=== PATIENT | male | born 1960 | race Caucasian/White ===

== ENCOUNTER → 2016-07-25 | Outpatient (CLI) | payer OTHER ==
[~2016-07-25] MED LIST: ADENOSINE 76 MG in GIVE UN-DILUTED 0 ML IV ONE; ADENOSINE 90 MG/30 ML INJ IV ONE; GABA-494 PO; METF-312 PO; SIMV-8 PO; SITA100T7 PO
== END | disposition home or self-care (01) ==
LOC: Rad HDHVI 09:12
PROVIDERS: ATTEND Internal Medicine Cardiovascular Disease
DX: I10 Essential (primary) hypertension (principal); E78.00 Pure hypercholesterolemia, unspecified; E11.9 Type 2 diabetes mellitus without complications; F17.210 Nicotine dependence, cigarettes, uncomplicated
CPT/HCPCS: 78452; 93005; 96374; 96375; A9500; J0153

== ENCOUNTER → 2016-09-05 | Outpatient (CLI) | payer OTHER ==
[~2016-09-05] MED LIST changes: -ADENOSINE 76 MG in GIVE UN-DILUTED 0 ML IV ONE; -ADENOSINE 90 MG/30 ML INJ IV ONE; -METF-312 PO; +METF-370 PO
[2016-09-05 12:33] LABS: Basophils # (auto) 0 uL; Basophils % (auto) 0.3 % (0.0-2.0); CONDITION Y; Eosinophils # (auto) 0 uL; Eosinophils % (auto) 0.6 % (0.0-7.0); Hematocrit 49.3 % (41.0-53.0); Hemoglobin 16.7 g/dL (13.5-17.5); Lymphocytes # (auto) 1.8 uL; Lymphocytes % (auto) 22.8 % (10.0-50.0); Mean Corpuscular Hemoglobin 29.6 pg (28.0-32.0); Mean Corpuscular Hgb Conc. 33.8 g/dL (32.0-36.0); Mean Corpuscular Volume 87.6 fL (80.0-100.0); Mean Platelet Volume 8.6 fL (7.4-10.4); Monocytes # (auto) 0.4 uL; Monocytes % (auto) 5.5 % (0.0-12.0); Neutrophils # (auto) 5.7 uL; Neutrophils % (auto) 70.8 % (37.0-80.0); Platelet Count (auto) 363 10^3/uL (140-450); Red Cell Distribution Width 13.8 % (11.6-16.0); White Blood Cell 8.1 10^3/uL (4.4-10.8)
[2016-09-05 12:35] LABS: Urine Bilirubin Negative (Negative); Urine Blood Negative /uL (Negative); Urine Color Yellow (Yellow); Urine Glucose 4+ mg/dL (Normal); Urine Ketone 1+ (Negative); Urine Nitrite Negative (Negative); Urine Urobilinogen Normal (Negative)
[2016-09-05 12:51] LABS: Albumin 4.1 g/dL (3.4-5.0); BUN/Creatinine Ratio 20.3; Bilirubin, Direct 0.1 mg/dL (0-0.2); Bilirubin, Total 0.5 mg/dL (0.2-1.0); Calcium 9.2 mg/dL (8.5-10.1)
== END | disposition home or self-care (01) ==
LOC: LAB 07:52
PROVIDERS: ATTEND Internal Medicine Cardiovascular Disease
DX: I10 Essential (primary) hypertension (principal); E78.00 Pure hypercholesterolemia, unspecified; K74.1 Hepatic sclerosis; E11.9 Type 2 diabetes mellitus without complications; R97.20 Elevated prostate specific antigen [PSA]; R53.1 Weakness; E03.9 Hypothyroidism, unspecified; D64.9 Anemia, unspecified; E55.9 Vitamin D deficiency, unspecified; N39.0 Urinary tract infection, site not specified
CPT/HCPCS: 36415; 80048; 80061; 80076; 81003; 82306; 83036; 84153; 84403; 84443; 85025

== ENCOUNTER → 2016-12-28 | Outpatient (CLI) | payer OTHER ==
[~2016-12-28] MED LIST changes: +ASPI81TA27 PO; +CLOP75TA41 PO; +DAPA1TAB2 PO; +HYDR-4663 PO; +MAGN400T5 PO; +RANO1000 PO; +SITA50TA28 PO; +VITA400T4 PO
[2016-12-28 08:00] VITALS: BP 114/76
[2016-12-28 08:40] VITALS: BP 100/85
[2016-12-28 12:46] LABS: Basophils # (auto) 0 uL; Basophils % (auto) 0.3 % (0.0-2.0); Eosinophils # (auto) 0.1 uL; Eosinophils % (auto) 0.6 % (0.0-7.0); Hematocrit 48.1 % (41.0-53.0); Hemoglobin 16.7 g/dL (13.5-17.5); Lymphocytes # (auto) 2.1 uL; Mean Corpuscular Hemoglobin 30.7 pg (28.0-32.0); Mean Corpuscular Hgb Conc. 34.7 g/dL (32.0-36.0); Mean Corpuscular Volume 88.5 fL (80.0-100.0); Mean Platelet Volume 7.7 fL (6.9-10.8); Monocytes # (auto) 0.8 uL; Neutrophils # (auto) 6.6 uL; Neutrophils % (auto) 69.1 % (37.0-80.0); Nucleated Red Blood Cells % 0.1 %; Platelet Count (auto) 371 10^3/uL (140-450); Red Cell Distribution Width 13.6 % (11.8-14.3); White Blood Cell 9.6 10^3/uL (4.4-10.8)
[2016-12-28 13:02] LABS: BUN/Creatinine Ratio 11.3; Calcium 8.9 mg/dL (8.5-10.1); Potassium 3.9 mmol/L (3.5-5.1)
[2016-12-28 13:03] LABS: INR 0.9 (0.9-1.15); Partial Thromboplastin Time 26.9 sec (22.64-33.71); Prothrombin Time 9.8 sec (9.37-12.3)
== END | disposition home or self-care (01) ==
LOC: Rad HDHVI 08:00
PROVIDERS: ATTEND Internal Medicine Cardiovascular Disease
DX: Z01.818 Encounter for other preprocedural examination (principal); I10 Essential (primary) hypertension; D64.9 Anemia, unspecified; R79.1 Abnormal coagulation profile
CPT/HCPCS: 36415; 71020; 80048; 85025; 85610; 85730; 93005; G0463

== ENCOUNTER 2016-12-29 07:54 | Day surgery (SDC) | payer OTHER ==
[~2016-12-29] VITALS: Ht 172.7 cm; Wt 93.0 kg
[~2016-12-29 07:54] MED LIST changes: -METF-370 PO; -SITA100T7 PO
[2016-12-29] MEDS ORDERED: fentaNYL CITRATE 100 MCG/2 ML VL ONE (10:07)
[2016-12-29] MEDS ORDERED: ANGIOMAX 250 MG VIAL IV ONE (10:07)
[2016-12-29] MEDS ORDERED: MIDAZOLAM HCL 1MG/1ML-2 ML VIAL ONE (10:07)
[2016-12-29] MEDS ORDERED: SODIUM CHL 0.9% 0 ML ONE (10:08)
[2016-12-29] MEDS ORDERED: IOHEXOL 350 MG/ML 100ML IJ ONE (10:15)
[2016-12-29] MEDS ORDERED: HEPARIN 1,000 UNITS/ml 1ML VIAL ONE (10:15)
[2016-12-29] MEDS ORDERED: LIDOCAINE 2%HCL (LOCAL ANESTH.) INJ 20ML MDV ONE (10:15)
[2016-12-29] MEDS ORDERED: ASPirin 81 mg TAB ONE (11:25)
[2016-12-29] MEDS ORDERED: ASPirin 81 mg TAB PO ONE (11:45)
[2016-12-29] MEDS ORDERED: ISOSORBIDE MONONITRATE 60 MG TAB PO ONE (11:45)
== END 2016-12-29 13:15 | disposition home or self-care (01) ==
LOC: CATH 07:54
PROVIDERS: ATTEND Internal Medicine Cardiovascular Disease
DX: I25.10 Atherosclerotic heart disease of native coronary artery without angina pectoris (principal)
CPT/HCPCS: 93458; C1894; J1644; J2250; J3010; J7030; J7040; Q9967; 99152; 99153

== ENCOUNTER → 2017-01-06 | Outpatient (CLI) | payer OTHER ==
[~2017-01-06] MED LIST changes: -HYDR-4663 PO; +HYDR-4683 PO
== END | disposition home or self-care (01) ==
LOC: RT 08:40
PROVIDERS: ATTEND Internal Medicine Cardiovascular Disease
DX: Z01.818 Encounter for other preprocedural examination (principal); I25.10 Atherosclerotic heart disease of native coronary artery without angina pectoris; Z95.1 Presence of aortocoronary bypass graft
CPT/HCPCS: 94060; 94640

== ENCOUNTER → 2017-01-18 | Outpatient (CLI) | payer OTHER ==
[~2017-01-18] MED LIST changes: +LIDOCAINE 1% HCL (LOCAL ANESTH.) INJ 20ML MDV IJ ONE; +LIDOCAINE 1% HCL (LOCAL ANESTH.) INJ 20ML MDV ONE
[2017-01-18 12:30] VITALS: BP 111/80
[2017-01-18 15:00] VITALS: BP 97/67
== END | disposition home or self-care (01) ==
LOC: CHF HDHVI 12:47
PROVIDERS: ATTEND Internal Medicine Cardiovascular Disease
DX: I50.9 Heart failure, unspecified (principal); Z95.1 Presence of aortocoronary bypass graft
CPT/HCPCS: 96372; G0463; J2001

== ENCOUNTER → 2017-05-05 | Outpatient (CLI) | payer OTHER ==
[~2017-05-05] MED LIST changes: +ADENOSINE 74 MG in GIVE UN-DILUTED 0 ML IV ONE; +ADENOSINE 90 MG/30 ML INJ IV ONE; -DAPA1TAB2 PO; +DAPA1TAB4 PO; -GABA-494 PO; +GABA100C9 PO; -LIDOCAINE 1% HCL (LOCAL ANESTH.) INJ 20ML MDV IJ ONE; -LIDOCAINE 1% HCL (LOCAL ANESTH.) INJ 20ML MDV ONE
== END | disposition home or self-care (01) ==
LOC: Rad HDHVI 08:02
PROVIDERS: ATTEND Internal Medicine Cardiovascular Disease
DX: R07.9 Chest pain, unspecified (principal); I10 Essential (primary) hypertension; E78.00 Pure hypercholesterolemia, unspecified; E11.9 Type 2 diabetes mellitus without complications; Z95.1 Presence of aortocoronary bypass graft; Z82.49 Family history of ischemic heart disease and other diseases of the circulatory system
CPT/HCPCS: 78452; 93005; 96374; 96375; A9500; J0153

== ENCOUNTER → 2017-06-13 | Outpatient (CLI) | payer OTHER ==
[~2017-06-13] MED LIST changes: -ADENOSINE 74 MG in GIVE UN-DILUTED 0 ML IV ONE; -ADENOSINE 90 MG/30 ML INJ IV ONE
[2017-06-13 12:25] LABS: Basophils # (auto) 0 uL; Basophils % (auto) 0.3 % (0.0-2.0); Eosinophils # (auto) 0.1 uL; Hematocrit 48.5 % (41.0-53.0); Hemoglobin 16.6 g/dL (13.5-17.5); Lymphocytes # (auto) 2.1 uL; Lymphocytes % (auto) 22.9 % (10.0-50.0); Mean Corpuscular Hemoglobin 29.2 pg (28.0-32.0); Mean Corpuscular Hgb Conc. 34.2 g/dL (32.0-36.0); Mean Corpuscular Volume 85.3 fL (80.0-100.0); Monocytes # (auto) 0.7 uL; Monocytes % (auto) 7.8 % (0.0-12.0); Neutrophils # (auto) 6.2 uL; Nucleated Red Blood Cells % 0.5 %; Platelet Count (auto) 341 10^3/uL (140-450); Red Blood Cells 5.69 10^6/uL (4.5-5.90); Red Cell Distribution Width 15.4 % (11.8-14.3); White Blood Cell 9.1 10^3/uL (4.4-10.8)
[2017-06-13 12:28] LABS: Urine Blood Negative /uL (Negative); Urine Specific Gravity 1.036 (1.001-1.035)
[2017-06-13 12:50] LABS: Free T4 (Free Thyroxine) 1.09 ng/dL (0.89-1.76); Prostate Specific Antigen 1.25 ng/mL (0.0-4.0)
[2017-06-13 12:58] LABS: Alanine Aminotransferase 24 U/L (16-61); Albumin 3.9 g/dL (3.4-5.0); Alkaline Phosphatase 76 U/L (45-117); Anion Gap 12 (5-15); Aspartate Aminotransferase 13 U/L (15-37); BUN/Creatinine Ratio 16.7; Bilirubin, Total 0.6 mg/dL (0.2-1.0); Blood Urea Nitrogen 11 mg/dL (7-18); Calcium 9.1 mg/dL (8.5-10.1); Carbon Dioxide 26 mmol/L (21-32); Chloride 97 mmol/L (98-107); Cholesterol 182 mg/dL (< 200); GFR African American 159 mL/min; GFR Non-African American 132 mL/min; Glucose 163 mg/dL (74-106); HDL Cholesterol 32 mg/dL (40-59); Sodium 135 mmol/L (136-145); Total Protein 7.5 g/dL (6.4-8.2); Triglycerides 534 mg/dL (< 150)
[2017-06-13 13:41] LABS: Potassium 2.7 mmol/L (3.5-5.1)
== END | disposition home or self-care (01) ==
LOC: LAB 07:57
PROVIDERS: ATTEND Internal Medicine Cardiovascular Disease
DX: I10 Essential (primary) hypertension (principal); E11.9 Type 2 diabetes mellitus without complications; E03.9 Hypothyroidism, unspecified; E78.5 Hyperlipidemia, unspecified; D64.9 Anemia, unspecified; E55.9 Vitamin D deficiency, unspecified; R53.81 Other malaise; R97.20 Elevated prostate specific antigen [PSA]; K74.1 Hepatic sclerosis; D51.9 Vitamin B12 deficiency anemia, unspecified; N39.0 Urinary tract infection, site not specified
CPT/HCPCS: 36415; 80053; 80061; 81003; 82306; 82607; 83036; 84153; 84403; 84439; 84443; 85025

== ENCOUNTER → 2017-06-26 | Outpatient (CLI) | payer OTHER ==
[2017-06-26 10:40] VITALS: BP 100/62
== END | disposition home or self-care (01) ==
LOC: CHF HDHVI 10:55
PROVIDERS: ATTEND Internal Medicine Cardiovascular Disease
DX: E11.9 Type 2 diabetes mellitus without complications (principal)
CPT/HCPCS: 96372; G0463

== ENCOUNTER → 2019-09-05 | Outpatient (CLI) | payer OTHER ==
[~2019-09-05] MED LIST changes: +ASPI-404 PO; -ASPI81TA27 PO; -HYDR-4683 PO; +HYDR-4833 PO; +MAGN400T40 PO; -MAGN400T5 PO
== END | disposition home or self-care (01) ==
LOC: Rad HDHVI 07:48
PROVIDERS: ATTEND Internal Medicine Cardiovascular Disease
DX: E11.9 Type 2 diabetes mellitus without complications (principal); R06.02 Shortness of breath; R09.89 Other specified symptoms and signs involving the circulatory and respiratory systems
CPT/HCPCS: 93306

== ENCOUNTER → 2019-10-03 | Outpatient (CLI) | payer OTHER ==
[~2019-10-03] VITALS: Ht 172.7 cm; Wt 86.2 kg
[~2019-10-03] MED LIST changes: +ADENOSINE 72 MG in GIVE UN-DILUTED 0 ML IV ONE; +ADENOSINE 90 MG/30 ML INJ IV ONE
== END | disposition home or self-care (01) ==
LOC: Rad HDHVI 13:02
PROVIDERS: ATTEND Internal Medicine Cardiovascular Disease
DX: Z95.1 Presence of aortocoronary bypass graft (principal); E78.00 Pure hypercholesterolemia, unspecified; E11.9 Type 2 diabetes mellitus without complications; Z82.49 Family history of ischemic heart disease and other diseases of the circulatory system
CPT/HCPCS: 78452; 93005; 96374; 96375; A9500; J0153

== ENCOUNTER → 2019-11-15 | Outpatient (CLI) | payer OTHER ==
[~2019-11-15] MED LIST changes: -ADENOSINE 72 MG in GIVE UN-DILUTED 0 ML IV ONE; -ADENOSINE 90 MG/30 ML INJ IV ONE; -ASPI-404 PO; +ASPI-543 PO; +CHLO50TA PO; +DULA0.5I SC; +ICOS1CAP PO; +MAGN400T27 PO; +OMEP-263 PO; +OMEP20TA PO; +VARE1TAB PO
[2019-11-15 10:15] VITALS: BP 99/70
--- NOTE | 2019-11-15 10:15 | NUR ---
Patient in clinic for scheduled preop appt, aaox4, ambulatory, breathing even and unlabored.
--- NOTE | 2019-11-15 10:38 | NUR ---
EKG SR 79 ventricular trigeminy
[2019-11-15 10:47] VITALS: BP 94/56
--- NOTE | 2019-11-15 10:47 | NUR ---
Pre-Op Discharge Summary: See e-MAR for any medications given for this visit. Pre-op orders received and carried out per MD of EKG, LABS and chest xrays. Patient given a copy of EKG with instructions to go to [facility] out patient for further follow up care.
[2019-11-15 12:03] LABS: Basophils # (auto) 0 10 ^3/uL (0-0.2); Basophils % (auto) 0.2 % (0.0-2.0); Eosinophils # (auto) 0 10 ^3/uL (0-0.8); Eosinophils % (auto) 0.4 % (0.0-7.0); Hematocrit 49.9 % (41.0-53.0); Hemoglobin 17.5 g/dL (13.5-17.5); Lymphocytes # (auto) 2.7 10 ^3/uL (0.4-5.4); Lymphocytes % (auto) 31.9 % (10.0-50.0); Mean Corpuscular Hemoglobin 29.8 pg (28.0-32.0); Mean Corpuscular Hgb Conc. 35.1 g/dL (32.0-36.0); Mean Corpuscular Volume 84.9 fL (80.0-100.0); Monocytes # (auto) 0.6 10 ^3/uL (0-1.3); Monocytes % (auto) 6.9 % (0.0-12.0); Neutrophils # (auto) 5.1 10 ^3/uL (1.6-8.6); Neutrophils % (auto) 60.6 % (37.0-80.0); Nucleated Red Blood Cells % 0.1 %; Platelet Count (auto) 321 10^3/uL (140-450); Red Blood Cells 5.88 10^6/uL (4.5-5.90); Red Cell Distribution Width 13.3 % (11.8-14.3); White Blood Cell 8.5 10^3/uL (4.4-10.8)
[2019-11-15 12:13] LABS: BUN/Creatinine Ratio 9.9; Calcium 9.6 mg/dL (8.5-10.1)
[2019-11-15 12:20] LABS: INR 0.92 (0.9-1.15); Partial Thromboplastin Time 24.1 sec (23.0-31.2)
[2019-11-15 14:01] LABS: Potassium 2.9 mmol/L (3.5-5.1)
--- NOTE | 2019-11-15 14:39 | NUR ---
MD notified of patient potassium lab result, prescription called into patient pharmacy of choice, patient notified of new prescription and follow up labs on Monday.
== END | disposition home or self-care (01) ==
LOC: Rad HDHVI 10:13
PROVIDERS: ATTEND Internal Medicine Cardiovascular Disease
DX: Z01.812 Encounter for preprocedural laboratory examination (principal); I70.0 Atherosclerosis of aorta; M47.814 Spondylosis without myelopathy or radiculopathy, thoracic region
CPT/HCPCS: 36415; 71046; 80048; 85025; 85610; 85730; 93005; G0463

== ENCOUNTER → 2019-11-18 | Outpatient (CLI) | payer OTHER ==
[~2019-11-18] MED LIST changes: -HYDR-4833 PO; -RANO1000 PO; -SIMV-8 PO; -VITA400T4 PO
== END | disposition home or self-care (01) ==
LOC: Rad HDHVI 08:10
PROVIDERS: ATTEND Internal Medicine Cardiovascular Disease
DX: R94.4 Abnormal results of kidney function studies (principal)
CPT/HCPCS: 36415; 84132

== ENCOUNTER 2019-11-21 06:44 | Inpatient (IN) | payer OTHER ==
[~2019-11-21] VITALS: Ht 172.7 cm; Wt 88.5 kg
[~2019-11-21 06:44] MED LIST changes: -MAGN400T27 PO; -OMEP-263 PO
[2019-11-21] MEDS ORDERED: IOHEXOL 350 MG/ML 100ML IJ ONE ×3 (07:42→10:36)
[2019-11-21] MEDS ORDERED: LIDOCAINE 2%HCL (LOCAL ANESTH.) INJ 20ML MDV ONE (07:42)
[2019-11-21] MEDS ORDERED: ANGIOMAX 250 MG VIAL IV ONE ×2 (08:20→10:35)
[2019-11-21] MEDS ORDERED: fentaNYL CITRATE 100 MCG/2 ML VL ONE (08:20)
[2019-11-21] MEDS ORDERED: MIDAZOLAM HCL 1MG/1ML-2 ML VIAL ONE (08:21)
[2019-11-21] MEDS ORDERED: SODIUM CHL 0.9% 0 ML ONE (08:21)
[2019-11-21] MEDS ORDERED: SODIUM CHL 0.9% 50 ML ONE (10:35)
[2019-11-21] MEDS ORDERED: CLOPIDOGREL BISULFATE 75 MG TAB ONE (10:38)
[2019-11-21] MEDS ORDERED: ASPirin 81 mg TAB ONE (10:38)
[2019-11-21] MEDS ORDERED: MORPHINE SULF INJ 2 MG/ML SYRINGE 1ML IV PRN (11:15)
[2019-11-21] MEDS ORDERED: Dulaglutide (Trulicity) 1.5 MG SC SCH (11:15)
[2019-11-21] MEDS ORDERED: DEXTROSE (50%) 50ML SYRG IV PRN (11:15)
[2019-11-21] MEDS ORDERED: ONDANSETRON HCL 4 MG/2 ML VIAL IV PRN (11:15)
[2019-11-21] MEDS ORDERED: NITROGLYCERIN 0.4 MG SL TAB SL PRN (11:15)
[2019-11-21] MEDS ORDERED: ACETAMINOPHEN 500 MG TAB PO PRN (11:15)
[2019-11-21] MEDS: ACCU-CHEK COMFORT CURVE STRIP VI SCH ×3 (12:18→22:12)
[2019-11-21] MEDS: InsuLIN REG 1unit/0.01ml Soln (100units/ml) SC SCH ×2 (12:23→17:49)
--- NOTE | 2019-11-21 13:45 | NUR ---
PATIENT ADMITTED ON THE FLOOR. AWAKE AND SITTING IN THE CHAIR. PATIENT SHOWS NO SIGNS OF DISTRESS AT THIS TIME. DISCUSSED THE PLAN OF CARE WITH THE PATIENT.
[2019-11-21 13:51] VITALS: BP 117/68
[2019-11-21] MEDS ORDERED: OMEP-263 PO (14:51)
[2019-11-21] MEDS ORDERED: MAGN400T27 PO (14:51)
[2019-11-21 14:52] VITALS: BP 117/68
[2019-11-21] MEDS ORDERED: PNEUMOCOCCAL VACC POLYS 25 MCG/0.5 ML VIAL IM ONE (15:00)
[2019-11-21 17:00] VITALS: BP 112/63
[2019-11-21] MEDS ORDERED: CHLORTHALIDONE 50 MG PO SCH (18:00)
--- NOTE | 2019-11-21 19:27 | NUR ---
Opening Shift Note Assumed care of patient after receiving report. Patient is awake and alert with no S/S of distress/SOB or pain. Call light within reach, bed in lowest locked position x2 side rails, HOB semi fowlers. Instructed on POC and to call for assist PRN, will continue to monitor for changes Q1hr and PRN.
--- NOTE | 2019-11-21 19:41 | NUR ---
ENDORSED CARE TO MILDRED [facility]. PATIENT SHOWS NO SIGNS OF DISTRESS AT THIS TIME.
[2019-11-21 22:00] VITALS: BP 93/46
[2019-11-21] MEDS: EPA ETHYL ESTER 1 GM PO SCH (22:00)
[2019-11-21] MEDS ORDERED: InsuLIN REG 1unit/0.01ml Soln (100units/ml) SC SCH (22:00)
[2019-11-21] MEDS: MAGNESIUM OXIDE 400 MG TAB PO SCH (22:12)
[2019-11-21] MEDS: GABAPENTIN 100 MG CAP PO SCH (22:12)
[2019-11-22 05:00] VITALS: BP 116/61
[2019-11-22] MEDS: ACCU-CHEK COMFORT CURVE STRIP VI SCH ×2 (06:50→12:18)
[2019-11-22] MEDS: InsuLIN REG 1unit/0.01ml Soln (100units/ml) SC SCH ×2 (06:51→12:23)
--- NOTE | 2019-11-22 07:00 | NUR ---
OPENING SHIFT NOTE RECEIVED REPORT ON THE PATIENT. AWAKE LYING IN BED. PATIENT SHOWS NO SIGNS OF DISTRESS AT THIS TIME. DISCUSSED THE PLAN OF CARE WITH THE PATIENT. BED IN LOWEST POSITION, SIDE RAILS UP X2, AND THE CALL LIGHT IS WITHIN REACH.
[2019-11-22 09:00] VITALS: BP 125/59
[2019-11-22] MEDS ORDERED: CLOPIDOGREL BISULFATE 75 MG TAB PO SCH (10:00)
[2019-11-22] MEDS ORDERED: ASPirin-EC 81 mg tab PO SCH (10:00)
[2019-11-22] MEDS ORDERED: DAPAGLIFLOZIN 10 MG PO SCH (10:00)
[2019-11-22] MEDS: EPA ETHYL ESTER 1 GM PO SCH (10:00)
[2019-11-22] MEDS ORDERED: PANTOPRAZOLE 40 MG TAB PO SCH (10:00)
[2019-11-22] MEDS: MAGNESIUM OXIDE 400 MG TAB PO SCH (10:00)
[2019-11-22] MEDS ORDERED: VARENICLINE TARTRATE 1 MG PO SCH (10:00)
[2019-11-22] MEDS: GABAPENTIN 100 MG CAP PO SCH (11:00)
[2019-11-22 13:00] VITALS: BP 115/71
[2019-11-22 15:27] VITALS: BP 154/68
== END 2019-11-22 16:36 | disposition home or self-care (01) | DRG 246 ==
LOC: CATH 06:44 → TELE-WESTW 06:45
PROVIDERS: ADMIT Internal Medicine Cardiovascular Disease; ATTEND Internal Medicine Cardiovascular Disease
PROC: 4A023N7 Measurement of Cardiac Sampling and Pressure, Left Heart, Percutaneous Approach (ICD-10-PCS; principal; 2019-11-21)
PROC: 027136Z Dilation of Coronary Artery, Two Arteries with Three Drug-eluting Intraluminal Devices, Percutaneous Approach (ICD-10-PCS; 2019-11-21)
PROC: B2111ZZ Fluoroscopy of Multiple Coronary Arteries using Low Osmolar Contrast (ICD-10-PCS; 2019-11-21)
PROC: B2151ZZ Fluoroscopy of Left Heart using Low Osmolar Contrast (ICD-10-PCS; 2019-11-21)
PROC: B41C1ZZ Fluoroscopy of Pelvic Arteries using Low Osmolar Contrast (ICD-10-PCS; 2019-11-21)
PROC: B2121ZZ Fluoroscopy of Single Coronary Artery Bypass Graft using Low Osmolar Contrast (ICD-10-PCS; 2019-11-21)
DX: I25.5 Ischemic cardiomyopathy (principal); I50.23 Acute on chronic systolic (congestive) heart failure; I25.10 Atherosclerotic heart disease of native coronary artery without angina pectoris; I11.0 Hypertensive heart disease with heart failure; E78.5 Hyperlipidemia, unspecified; I73.9 Peripheral vascular disease, unspecified; Z82.49 Family history of ischemic heart disease and other diseases of the circulatory system; I25.2 Old myocardial infarction; Z95.1 Presence of aortocoronary bypass graft; Z20.828 Contact with and (suspected) exposure to other viral communicable diseases; Z01.812 Encounter for preprocedural laboratory examination
CPT/HCPCS: 36415; 75710; 82565; 82962; 92928; 92929; 93458; 99152; 99153; C1874; G0378; J1815; J2250

== ENCOUNTER → 2019-12-13 | Outpatient (CLI) | payer OTHER ==
[~2019-12-13] MED LIST changes: +IOHEXOL 350 MG/ML 100ML IJ ONE; +MAGN400T27 PO; -MAGN400T40 PO; +OMEP-263 PO; -OMEP20TA PO
[2019-12-13 08:45] VITALS: BP 136/76
--- NOTE | 2019-12-13 08:45 | NUR ---
PATIENT IN CLINIC FOR SCHEDULED CT WITH IV CONTRAST, AAOx4, AMBULATORY, BREATHING EVEN AND UNLABORED.
--- NOTE | 2019-12-13 08:54 | NUR ---
IV insertion IV access obtained by Colleen LEVY, via clean sterile technique by inserting 20 gauge catheter at after 1 attempt(s). IV secured properly. No trauma to site. Patient tolerated procedure well. BLOOD DRAWN DURING IV START AND SENT TO LAB FOR STAT CREAT.
--- NOTE | 2019-12-13 10:05 | NUR ---
PATIENT TAKING JANUMET, EDUCATED TO HOLD MEDICATION BECAUSE IT CONTAINS METFORMIN. PATIENT VERBALIZED UNDERSTANDING, GIVEN WRITTEN INSTRUCTIONS TO REINFORCE AT HOME.
--- NOTE | 2019-12-13 10:06 | NUR ---
IV removal IV DC'd with sterile technique, catheter fully intact. Pressure dressing applied to site. Patient tolerated procedure well.
[2019-12-13 10:08] VITALS: BP 145/68
--- NOTE | 2019-12-13 10:08 | NUR ---
Discharge Instructions See e-MAR for any mediations given with this visit. Patient education given on disease process. Patient verbalized understanding. Previous labs reviewed. Patient discharged in stable condition with after care instructions and follow up appointment.
== END | disposition home or self-care (01) ==
LOC: Rad HDHVI 08:29
PROVIDERS: ATTEND Internal Medicine Cardiovascular Disease
DX: K80.20 Calculus of gallbladder without cholecystitis without obstruction (principal); I77.1 Stricture of artery; I70.8 Atherosclerosis of other arteries; I70.0 Atherosclerosis of aorta; J43.9 Emphysema, unspecified; M47.814 Spondylosis without myelopathy or radiculopathy, thoracic region; J98.4 Other disorders of lung; J98.11 Atelectasis; N28.1 Cyst of kidney, acquired; I67.2 Cerebral atherosclerosis; R94.4 Abnormal results of kidney function studies
CPT/HCPCS: 36415; 71275; 82565; G0463; Q9967